=== PATIENT | male | born 1970 | race Hispanic/Latino ===

== ENCOUNTER → 2018-03-27 | Day surgery (SDC) | payer BC ==
[2018-03-25 12:26] LABS: BASOPHILS # (AUTO) 0.1 (0.0-0.1); BASOPHILS % 0.7 % (0.0-1.0); EOSINOPHILS # (AUTO) 0.2 (0.0-0.4); HEMATOCRIT 44.8 % (38.2-49.6); HEMOGLOBIN 15.9 g/dL (14.0-18.0); LYMPHOCYTES # (AUTO) 3.1 (1.0-3.2); LYMPHOCYTES % 31.1 % (18.0-39.1); MEAN CORPUSCULAR HEMOGLOBIN 30.4 pg (28-32); MEAN CORPUSCULAR HGB CONC 35.5 g/dL (31-35); MEAN CORPUSCULAR VOLUME 85.7 fL (81-99); MONOCYTES # (AUTO) 0.8 (0.2-0.8); MONOCYTES % 7.6 % (4.4-11.3); NEUTROPHILS # (AUTO) 5.8 (2.1-6.9); PLATELET COUNT 265 x10e3/uL (140-360); RED BLOOD COUNT 5.23 x10e6/uL (4.3-5.7); RED CELL DISTRIBUTION WIDTH 11.8 % (11.7-14.4)
[2018-03-25 12:41] LABS: ANION GAP 16.4 mmol/L (8-16); BLOOD UREA NITROGEN 12 mg/dL (7-26); BUN/CREATININE RATIO 12 (6-25); CALCIUM 9.9 mg/dL (8.4-10.2); CARBON DIOXIDE 23 mmol/L (22-29); CHLORIDE 103 mmol/L (98-107); CREATININE, SERUM 1.03 mg/dL (0.72-1.25); EST GLOMERULAR FILTRATION RATE > 60 ML/MIN (60-); GLUCOSE 98 mg/dL (74-118); POTASSIUM 4.4 mmol/L (3.5-5.1); SODIUM 138 mmol/L (136-145)
--- NOTE | 2018-03-25 13:07 | Diagnostic Imaging Report ---
EXAMINATION: CHEST 2 VIEWS INDICATION: Chest pain. Preop. Vocal cord surgery COMPARISON: None FINDINGS: TUBES and LINES: None. LUNGS: Lungs are well inflated. Lungs are clear. There is no evidence of pneumonia or pulmonary edema. PLEURA: No pleural effusion or pneumothorax. HEART AND MEDIASTINUM: The cardiomediastinal silhouette is unremarkable. BONES AND SOFT TISSUES: No acute osseous lesion. Soft tissues are unremarkable. UPPER ABDOMEN: No free air under the diaphragm. IMPRESSION: No acute thoracic abnormality. Signed by: Dr. Timoteo Sanchez M.D. on 03/25/2018 1:03 PM
[~2018-03-27] MED LIST: ALBUTEROL0.63 MG/3 INH; CITALOPRAM HBR20 MG PO; DEXAMETHASONE SOD PHOS INJ 4 MG/ML VIAL ONE; FENTANYL CITRATE/PF 100MCG/2 ML INJ ONE; GLYCOPYRROLATE INJ 1MG/ 5 ML SYR ONE; LEVOCETIRIZINE D5 MG PO; LIDOCAINE HCL 2% LOCAL INJ 5 ML SDV VIAL INJ ONE; MIDAZOLAM HCL 2 MG/2 ML VIAL ONE; NEOSTIGMINE 5 MG/5ML SYR ONE; ONDANSETRON HCL INJ 2 MG/ML VIAL ONE; OXYMETAZOLINE HCL 0.05% NAS 1 SPRAY BTL ONE; PANTOPRAZOLE SO40 MG PO; PROPOFOL IV EMULSION 10 MG/ML 20 ML VIAL ONE; PROPRANOLOL HCL10 MG PO; ROCURONIUM BROMIDE 10 MG/ML 5ML VIAL ONE; SEVOFLURANE INHAL SOLN 250 ML PEN BTL ONE; TEKTURNA HCT PO; ZANTAC 7575 MG PO
[2018-03-27 10:10] VITALS: BP 132/86
--- NOTE | 2018-03-27 10:12 | Operative Report ---
DATE OF PROCEDURE: March 27, 2018 PREOPERATIVE DIAGNOSIS: Left posterior true vocal cord mass. POSTOPERATIVE DIAGNOSIS: Left posterior true vocal cord mass. PROCEDURES: 1. Direct operative laryngoscopy with use of operating microscope. 2. Excisional biopsy of left posterior vocal cord mass. SIGNIFICANT FINDINGS: 1.2 cm spherical pedunculated mass attached to the left posterior true vocal cord. ANESTHESIA: General endotracheal tube anesthesia with 7.0 ET tube. SPECIMENS REMOVED: Left posterior true vocal cord mass. ESTIMATED BLOOD LOSS: 1 mL. COMPLICATIONS: None. INDICATIONS: Patient is a 47-year-old male with 7 weeks history of postnasal drip, globus sensation, throat tightness, cough, throat clearing. He is a nonsmoker. He has had no previous throat or neck surgery. He has acid reflux and laryngopharyngeal reflux disease. Flexible fiberoptic nasal laryngoscopy revealed a left posterior true vocal cord soft tissue mass. He is scheduled for direct operative laryngoscopy with use of operating microscope, excision of left true vocal cord mass under general anesthesia. Risks and complications of the procedures were thoroughly discussed with patient, and they include infection; bleeding; scarring; failure to improve; need for additional operations; worsening of hoarseness; permanent voice changes; possibility of malignancy and need for further treatment and surgery; damage to teeth, gums, tongue, and lips; need for blood transfusions; damage to surrounding nerves, blood vessels, and muscles; numbness of the tongue; inability to taste. He fully understands and gives consent. DESCRIPTION OF PROCEDURE: Patient was taken to the operating room and placed supine on the operating table where general anesthesia was achieved through orotracheal intubation with a 7.0 ET tube. Plastic tooth guard was then placed over the upper teeth. A Viola laryngoscope was then used to visualize the larynx. This was then placed into suspension on the [place] stand. Operating microscope was brought into place. The larynx was visualized. There appeared to be greater than 1 cm spherical pedunculated mass attached to the posterior aspect of the left true vocal cord. This was then grasped with a cup forceps and was excised at its base with Bellucci scissors. Hemostasis was obtained with cottonoid pledgets soaked with Afrin, which were then removed. The bleeding ceased with this maneuver. Further inspection of the larynx and hypopharynx appeared to be clear with normal true vocal cords. Patient was awakened in the operating room, extubated, and taken to the recovery room in good condition. Job#: [id number] DR BIRD
--- OUTSIDE RECORDS SUMMARY | 2018-04-08 10:26 | XMS REPORT ---
Author Author [facility] Address Unknown Phone Unavailable Care Team Providers Care Manager Core Name Role Phone ISABELLA BECKFORD Unavailable Unavailable Problems This patient has no known problems. Allergies, Adverse Reactions, Alerts This patient has no known allergies or adverse reactions. Medications This patient has no known medications. Results Test Description Test Time Test Comments Text Results Atomic Results Result Comments CHEST 2 VIEWS 2018-03-25 13:03:00 [facility] [address], [place] [address] Patient Name: SAULO MCKEON MR #: [id number] : 1970 Age/Sex: 47/M Req #: [id number] Adm Physician: Ordered by: ANALY MASON, ISABELLA MASON Report #: [id number] Location: OR Room/Bed: Procedure: [id number] DX/CHEST 2 VIEWS Exam Date: 03/25/18 Exam Time: 1220 REPORT STATUS: Signed EXAMINATION: CHEST 2 VIEWS INDICATION: Chest pain. Preop. Vocal cord surgery COMPARISON: None FINDINGS: TUBES and LINES: None. LUNGS: Lungs are well inflated. Lungs are clear. There is no evidence of pneumonia or pulmonary edema. PLEURA: No pleural effusion or pneumothorax. HEART AND MEDIASTINUM: The cardiomediastinal silhouette is unremarkable. BONES AND SOFT TISSUES: No acute osseous lesion. Soft tissues are unremarkable. UPPER ABDOMEN: No free air under the diaphragm. IMPRESSION: No acute thoracic abnormality. Signed by: Dr. Timoteo Sanchez M.D. on 03/25/2018 1:03 PM Dictated By: TIMOTEO SANCHEZ MD, MD [id number] Transcribed By: BRET on 03/25/18 [id number] COPY TO: ISABELLA BECKFORD
== END | disposition home or self-care (01) ==
LOC: OR 05:57
PROVIDERS: ATTEND Otolaryngology
DX: J38.1 Polyp of vocal cord and larynx (principal); J38.3 Other diseases of vocal cords; K21.9 Gastro-esophageal reflux disease without esophagitis; J45.909 Unspecified asthma, uncomplicated; I10 Essential (primary) hypertension; K76.0 Fatty (change of) liver, not elsewhere classified; F41.9 Anxiety disorder, unspecified; Z88.8 Allergy status to other drugs, medicaments and biological substances; Z01.812 Encounter for preprocedural laboratory examination; Z01.818 Encounter for other preprocedural examination
CPT/HCPCS: 31541; 36415; 71046; 80048; 85025; 88305; J1100; J2001; J2250; J2405; J3490

== ENCOUNTER → 2020-04-11 | Day surgery (SDC) | payer BC, OTHER ==
[2020-04-07 13:49] LABS: BASOPHILS # (AUTO) 0.1 (0.0-0.1); BASOPHILS % 0.6 % (0.0-1.0); EOSINOPHILS # (AUTO) 0.2 (0.0-0.4); EOSINOPHILS % 1.8 % (0.0-6.0); HEMATOCRIT 46.3 % (38.2-49.6); LYMPHOCYTES # (AUTO) 3.2 (1.0-3.2); LYMPHOCYTES % 29.8 % (18.0-39.1); MEAN CORPUSCULAR HGB CONC 34.6 g/dL (31-35); MEAN CORPUSCULAR VOLUME 86.7 fL (81-99); MONOCYTES # (AUTO) 0.8 (0.2-0.8); MONOCYTES % 7.5 % (4.4-11.3); NEUTROPHILS # (AUTO) 6.3 (2.1-6.9); NEUTROPHILS % 59.9 % (38.7-80.0); PLATELET COUNT 276 x10e3/uL (140-360); RED BLOOD COUNT 5.34 x10e6/uL (4.3-5.7)
[2020-04-07 14:04] LABS: ANION GAP 16.2 mmol/L (8-16); BLOOD UREA NITROGEN 15 mg/dL (7-26); BUN/CREATININE RATIO 15 (6-25); CALCIUM 9.4 mg/dL (8.4-10.2); CARBON DIOXIDE 23 mmol/L (22-29); CHLORIDE 105 mmol/L (98-107); CREATININE, SERUM 1.02 mg/dL (0.72-1.25); EST GLOMERULAR FILTRATION RATE > 60 ML/MIN (60-); GLUCOSE 102 mg/dL (74-118); POTASSIUM 4.2 mmol/L (3.5-5.1); SODIUM 140 mmol/L (136-145)
[~2020-04-11] VITALS: Ht 172.7 cm; Wt 104.3 kg
[~2020-04-11] MED LIST changes: +BUPIVACAINE 0.25% 30ML SDV INJ ONE; +CEFAZOLIN SOD 1 GM VIAL ONE; +CRESTOR10 MG PO; +EFFEXOR XR 3737.5 MG PO; +GLYCOPYRROLATE INJ 0.2 MG/ML VIAL ONE; -GLYCOPYRROLATE INJ 1MG/ 5 ML SYR ONE; +HYDROCODONE/APAP 7.5MG-325MG 1 EA TAB ONE; +KETOROLAC TROMETHAMINE 30 MG/ML VIAL ONE; +LIDOCAINE HCL 1% 2 ML AMP ONE; +METOCLOPRAMIDE HCL 10 MG/2ML VIAL ONE; +MORPHINE SULFATE INJ 4 MG/ML INJ 1ML ONE; +NEOSTIGMINE 1 MG/ML 10ML VIAL ONE; -NEOSTIGMINE 5 MG/5ML SYR ONE; -ONDANSETRON HCL INJ 2 MG/ML VIAL ONE; +ONDANSETRON HCL INJ 2MG/ML 2ML 2 MG/ML VIAL ONE; -OXYMETAZOLINE HCL 0.05% NAS 1 SPRAY BTL ONE; +PEPCID AC10 MG PO; +ROCURONIUM BROMIDE 10 MG/ML 5ML VIAL IV ONE; -ROCURONIUM BROMIDE 10 MG/ML 5ML VIAL ONE; +TEKTURNA HCT
[2020-04-11 13:47] VITALS: BP 129/84
--- NOTE | 2020-04-11 13:52 | Operative Report ---
DATE OF PROCEDURE: 04/11/2020 SURGEON: Deniz Maria MD PREOPERATIVE DIAGNOSIS: Ventral hernia. POSTOPERATIVE DIAGNOSIS: Ventral hernia. OPERATION PERFORMED: Repair of ventral hernia with Ventralex patch. ANESTHESIA: General. BICYCLE COURIER: JODI Guerrier. ESTIMATED BLOOD LOSS: Minimal. DESCRIPTION OF PROCEDURE: The patient is lying in bed in the supine position under good general anesthesia, the abdomen was prepped with Betadine solution and draped in the usual manner. A transverse lower abdominal incision was made, carried down through the subcutaneous tissue. Immediately, the hernia sac was encountered. The hernia sac was then slowly and carefully dissected circumferentially. The umbilicus was then detached from the hernia sac. The hernia sac was then opened and some incarcerated omentum was found within the hernia sac which was slowly and carefully and reduced back to the intra-abdominal cavity. The excess of the hernia sac was resected. There was a 2nd smaller hole next to the primary hole and this two holes were then incorporated into a single defect. After this was done, the fascia all the way around was prepared and all of the old sutures were removed. A large Ventralex patch was then placed intra-abdominally and deployed without any difficulty and the defect was then closed transversely using interrupted sutures of 0 Ethibond anchoring the mesh with the closure. This gave the satisfactory repair without any tension. The whole area was thoroughly irrigated. Perfect hemostasis was ascertained. The fascia was then infiltrated with 0.25% Marcaine. The umbilicus was then tacked back down to the midline fascia with 3-0 Vicryl. The subcutaneous tissue was approximated with 3-0 Vicryl and the skin was closed with interrupted vertical mattress sutures of 3-0 silk and dressing was applied. The sponge, lap, and needle count was correct. The patient tolerated the procedure well and returned to the recovery room in stable condition. MD ANDREZ Sutton/DARA /[id number]
== END | disposition home or self-care (01) ==
LOC: OR 08:28
PROVIDERS: ATTEND Surgery
DX: K43.6 Other and unspecified ventral hernia with obstruction, without gangrene (principal); R00.1 Bradycardia, unspecified; J45.909 Unspecified asthma, uncomplicated; I10 Essential (primary) hypertension; E66.9 Obesity, unspecified; K21.9 Gastro-esophageal reflux disease without esophagitis; F41.9 Anxiety disorder, unspecified; Z88.8 Allergy status to other drugs, medicaments and biological substances; Z01.810 Encounter for preprocedural cardiovascular examination; Z01.812 Encounter for preprocedural laboratory examination; Z11.59 Encounter for screening for other viral diseases
CPT/HCPCS: 36415; 49561; 49568; 80048; 85025; 93005; C1781; J0690; J1100; J1885; J2001 ×2; J2250; J2270; J2405; J2704; J2710; J2765; J3010; U0002